=== PATIENT | male | born 2000 | race Hispanic/Latino ===

== ENCOUNTER 2022-06-08 01:26 | Inpatient (IN) | payer OTHER ==
[2022-06-08 02:38] LABS: ALT (SGPT) 19 U/L (8-55); AST (SGOT) 19 U/L (10-45); Albumin 4.5 g/dL (3.5-5.0); Alkaline Phosphatase 120 U/L (50-130); Anion Gap 13 mmol/L (10-20); BUN (Urea Nitrogen) 14 mg/dL (8.4-21.0); Bilirubin, Total 2.5 mg/dL (0.2-1.2); Calc. Creatinine Clearance 0 mL/min (70-130); Calcium 9.3 mg/dL (7.8-10.44); Carbon Dioxide 23 mmol/L (22-29); Chloride 106 mmol/L (98-107); Estimated GFR 123; Globulin 3.1 g/dL (2.4-3.5); Glucose 83 mg/dL (70-105); Potassium 3.9 mmol/L (3.5-5.1); Protein, Total 7.6 g/dL (6.0-8.3); Sodium 138 mmol/L (136-145)
[2022-06-08 02:47] LABS: #Eosinphils 0.7 thou/uL (0.0-0.7); #Lymphocytes 1.5 thou/uL (1.20-3.40); #Monocytes 0.8 thou/uL (0.11-0.59); #Neutrophils 5.5 thou/uL (1.40-6.50); %Basophils 0.2 % (0.0-1.0); %Monocytes 8.8 % (0.0-4.0); Hemoglobin 15.8 g/dL (14.0-18.0); Mean Corpuscular Volume 88.3 fl (78.0-98.0); Mean Platelet Volume 7.8 fL (7.4-10.4); Platelet Count 179 10x3/uL (130-400); RBC Distribution Width 11.8 % (11.5-14.5); Red Blood Cell (RBC) Count 5.26 mill/uL (4.00-5.20); White Blood Cell (WBC) Count 8.5 10x3/uL (4.8-10.8)
[2022-06-08 04:31] LABS: SARS-CoV-2 NAA Rapid Test Not Detected (NotDetected)
[2022-06-08] MEDS ORDERED: Ondansetron ODT 4 MG TAB PO PRN (04:43)
[2022-06-08] MEDS ORDERED: Acetaminophen 325 MG TAB PO PRN (04:43)
[2022-06-08] MEDS ORDERED: Ondansetron PF 4 MG/2 ML Vial IVP PRN (04:43)
[2022-06-08] MEDS ORDERED: Acetaminophen 650 MG Suppository PR PRN (04:43)
[2022-06-08] MEDS ORDERED: hydrALAZINE 20 MG/ML VIAL SLOW IVP PRN (04:43)
[2022-06-08] MEDS ORDERED: Aspirin Chewable 81 MG TAB PO SCH (05:00)
[2022-06-08] MEDS ORDERED: Iopamidol-370 76% 500 ML 1 ML ONE (06:00)
[2022-06-08] MEDS ORDERED: Aspirin 81 mg Enteric Coated Tablet PO SCH (09:00)
== END 2022-06-08 06:47 | disposition left against medical advice (07) | DRG 93 ==
LOC: ERS 01:26 → ERHOLD 04:16
PROVIDERS: ADMIT Student in an Organized Health Care Education/Training Program; ATTEND Internal Medicine
DX: R20.0 Anesthesia of skin (principal); R07.89 Other chest pain; Z20.822 Contact with and (suspected) exposure to COVID-19; Z53.29 Procedure and treatment not carried out because of patient's decision for other reasons
CPT/HCPCS: 36415; 70496; 70498; 80053; 83930; 84484; 85025; 93005; Q9967